=== PATIENT | female | born 1950 | race Caucasian/White ===

== ENCOUNTER → 2024-11-11 13:02 | Outpatient (REF) | payer MEDICARE, OTHER, SELFPAY | LOC: RCS 13:02 | PROVIDERS: ATTENDING PHYSICIAN Family Medicine | DX: R01.1 Cardiac murmur, unspecified (principal); M25.561 Pain in right knee; M25.562 Pain in left knee; M54.2 Cervicalgia | CPT/HCPCS: 72050; 73564; 93306 ==

== ENCOUNTER → 2024-12-08 13:27 | Outpatient (REF) | payer MEDICARE, OTHER, SELFPAY ==
[2024-12-08 16:15] LABS: Free T4 0.94 ng/dl (0.78-2.19)
[2024-12-08 16:30] LABS: TSH 4.43 uIU/ml (0.47-4.68)
== END ==
LOC: HWWDC 13:27
PROVIDERS: ATTENDING PHYSICIAN Family Medicine
DX: Z12.31 Encounter for screening mammogram for malignant neoplasm of breast (principal); R79.89 Other specified abnormal findings of blood chemistry; R93.6 Abnormal findings on diagnostic imaging of limbs; I10 Essential (primary) hypertension
CPT/HCPCS: 36415; 73700; 77063; 77067; 84439; 84443

== ENCOUNTER → 2024-12-09 09:13 | Outpatient (REF) | payer MEDICARE, OTHER, SELFPAY | LOC: PAVMRI 09:13 | PROVIDERS: ATTENDING PHYSICIAN Family Medicine | DX: M54.12 Radiculopathy, cervical region (principal); M50.30 Other cervical disc degeneration, unspecified cervical region | CPT/HCPCS: 72141 ==

== ENCOUNTER → 2025-02-23 09:16 | Outpatient (REF) | payer MEDICARE, OTHER, SELFPAY | LOC: WDC 09:16 | PROVIDERS: ATTENDING PHYSICIAN Family Medicine | DX: R92.8 Other abnormal and inconclusive findings on diagnostic imaging of breast (principal) | CPT/HCPCS: 76642 ==